=== PATIENT | female | born 1960 | race African-American/Black ===

== ENCOUNTER 2024-07-04 22:25 | Observation (INO) | payer OTHER ==
[2024-07-04] MEDS ORDERED: ACETAMINOPHEN INJECTION 100 ML ONE (22:53)
[2024-07-04 23:22] LABS: VENOUS BASE EXCESS 4.6 mmol/L (-2-2); VENOUS O2 SATURATION 93.1 % (70-80); VENOUS PCO2 33.3 mmHg (38-52); VENOUS PH 7.528 (7.310-7.410)
[2024-07-04] MEDS: ACETAMINOPHEN 1000 MG/100 ML BAG IVPB ONE (23:23)
[2024-07-04 23:35] LABS: ABSOLUTE IMMATURE GRANULOCYTES 0.03 x10^3/uL (0.0-0.031); BASOPHILS # 0.02 x10^3/uL (0.01-0.08); EOSINOPHIL % 0.6 % (0.7-5.8); EOSINOPHILS # 0.06 x10^3/uL (0.04-0.36); HEMATOCRIT 35.4 % (34.1-44.9); HEMOGLOBIN 11.5 g/dL (11.2-15.7); MCHC 32.5 g/dl (32.2-35.5); MEAN PLT VOLUME 11.6 fl (9.4-12.3); MONOCYTE # 0.63 x10^3/uL (0.24-0.86); MONOCYTE % 6.3 % (4.7-12.5); PLATELET COUNT 297 x10^3/uL (182-369); RDW 15.8 % (12.4-16.4)
[2024-07-04 23:47] LABS: INR 1.06 (0.83-1.09); PROTHROMBIN TIME (PATIENT) 11.5 SEC (9.7-13.0)
[2024-07-04 23:49] LABS: ACTIVATED PTT 27.1 SECONDS (25.2-36.5)
[2024-07-04 23:50] LABS: LACTIC ACID 2.1 mmol/L (0.4-2.0)
[2024-07-04 23:59] LABS: POTASSIUM 3.7 mmol/L (3.5-5.1)
[2024-07-05 00:01] LABS: CALCIUM 9.1 mg/dL (8.5-10.1)
[2024-07-05 00:02] LABS: ALBUMIN 3.4 g/dl (3.4-5.0); BLOOD UREA NITROGEN 10.1 mg/dL (7-18)
[2024-07-05 00:05] LABS: CREATININE 0.8 mg/dL (0.55-1.3)
[2024-07-05 00:07] LABS: BILIRUBIN,TOTAL 0.3 mg/dL (0.2-1); TOT PROT 7.4 g/dl (6.4-8.2)
[2024-07-05] MEDS ORDERED: ALBUTEROL SO4 2.5/IPRATROPIUM 0.5 INH SOL 3 ML VIAL.NEB. NEB PRN (01:27)
[2024-07-05] MEDS: SODIUM CHLORIDE 1,000 ML IV STA (01:40)
[2024-07-05] MEDS ORDERED: methylPREDNISolone NA SUCC 40 MG/1 ML VIAL ONE (01:42)
[2024-07-05] MEDS: methylPREDNISolone NA SUCC 125 MG/2 ML VIAL IVPUSH ONE (01:54)
[2024-07-05] MEDS: SODIUM CHLORIDE 0.9% 500 ML INFUS.BAG IV ONE (01:54)
[2024-07-05] MEDS: ALBUTEROL SO4 2.5/IPRATROPIUM 0.5 INH SOL 3 ML VIAL.NEB. NEB SCH (01:54)
[2024-07-05] MEDS: OSELTAMIVIR PHOSPHATE 75 MG CAPSULE PO ONE (01:54)
[2024-07-05] MEDS ORDERED: ACETAMINOPHEN 325 MG TABLET (FP) PO PRN (02:10)
[2024-07-05] MEDS: ZOLPIDEM TARTRATE 5 MG TABLET PO PRN (03:15)
[2024-07-05 03:51] VITALS: RESP 20; BMI 35.3
[2024-07-05] MEDS: SODIUM CHLORIDE 0.9% 1000 ML INFUS.BAG IV ONE (04:00)
[2024-07-05 05:53] LABS: URINE APPEARANCE CLEAR; URINE BILIRUBIN NEGATIVE (NEGATIVE); URINE COLOR YELLOW; URINE GLUCOSE (UA) 1+ (NEGATIVE); URINE KETONE NEGATIVE (NEGATIVE); URINE LEUK ESTERASE NEGATIVE (NEGATIVE); URINE NITRITE NEGATIVE (NEGATIVE); URINE PROTEIN NEGATIVE (NEGATIVE); URINE UROBILINOGEN 0.2 mg/dL (0.2-1.0)
[2024-07-05] MEDS: INSULIN ASPART SLIDING SCALE (NOVOLOG) 1 VIAL SQ SCH (06:30)
[2024-07-05] MEDS ORDERED: methylPREDNISolone NA SUCC 40 MG/1 ML VIAL IVPUSH SCH (07:00)
[2024-07-05 08:40] LABS: HEMATOCRIT 35.2 % (34.1-44.9); HEMOGLOBIN 11.1 g/dL (11.2-15.7); MCHC 31.5 g/dl (32.2-35.5); MEAN CELL VOLUME 77.9 fl (79.4-94.8); MEAN PLT VOLUME 11.6 fl (9.4-12.3); PLATELET COUNT 281 x10^3/uL (182-369); RDW 15.8 % (12.4-16.4)
[2024-07-05 09:00] LABS: POTASSIUM 3.3 mmol/L (3.5-5.1)
[2024-07-05 09:04] LABS: CALCIUM 8.1 mg/dL (8.5-10.1)
[2024-07-05 09:08] LABS: CREATININE 0.7 mg/dL (0.55-1.3)
[2024-07-05 09:09] LABS: BILIRUBIN,TOTAL 0.6 mg/dL (0.2-1); TOT PROT 6.7 g/dl (6.4-8.2)
[2024-07-05] MEDS: ASPIRIN COATED 81 MG TABLET.EC PO SCH (09:13)
[2024-07-05] MEDS: VALSARTAN 160 MG TABLET PO SCH (09:14)
[2024-07-05] MEDS: HYDROCHLOROTHIAZIDE 25 MG TABLET (FP) PO SCH (09:14)
[2024-07-05] MEDS: OSELTAMIVIR PHOSPHATE 75 MG CAPSULE PO SCH ×2 (09:14→11:37)
[2024-07-05] MEDS: ARIPiprazole 5 MG TABLET PO SCH (10:42)
[2024-07-05] MEDS: ENOXAPARIN NA (PORCINE) 40 MG/0.4 ML DISP.SYRIN SQ SCH (10:42)
[2024-07-05 12:41] VITALS: BP 153/51; PULSE 110; TEMP 97.9
[2024-07-05] MEDS: PANTOPRAZOLE 40 MG TABLET PO SCH (13:50)
[2024-07-05] MEDS: POTASSIUM CHLORIDE TABS 20 MEQ TABLET.ER (FP) PO ONE (13:50)
[2024-07-05] MEDS: IBUPROFEN 400 MG TABLET (FP) PO ONE (13:51)
[2024-07-05] MEDS: FAMOTIDINE 20 MG/50 ML IVPB 20 MG/50 ML MG IVPB ONE (13:51)
[2024-07-05] MEDS ORDERED: ATORVASTATIN CA 40 MG TABLET (FP) PO SCH (22:00)
== END 2024-07-05 17:05 | disposition home or self-care (01) ==
LOC: JER 22:25 → JERBED 07-05 00:35 → J6S 07-05 02:47
PROVIDERS: ADMIT Internal Medicine; ATTEND Internal Medicine
PROC: 3E033NZ Introduction of Analgesics, Hypnotics, Sedatives into Peripheral Vein, Percutaneous Approach (ICD-10-PCS; principal; 2024-07-05)
PROC: 3E023GC Introduction of Other Therapeutic Substance into Muscle, Percutaneous Approach (ICD-10-PCS; 2024-07-05)
PROC: 3E033GC Introduction of Other Therapeutic Substance into Peripheral Vein, Percutaneous Approach (ICD-10-PCS; 2024-07-05)
PROC: 3E033GC Introduction of Other Therapeutic Substance into Peripheral Vein, Percutaneous Approach (ICD-10-PCS; 2024-07-05)
PROC: 3E0337Z Introduction of Electrolytic and Water Balance Substance into Peripheral Vein, Percutaneous Approach (ICD-10-PCS; 2024-07-05)
DX: J10.1 Influenza due to other identified influenza virus with other respiratory manifestations (principal); A41.9 Sepsis, unspecified organism; J45.909 Unspecified asthma, uncomplicated; I10 Essential (primary) hypertension; E11.9 Type 2 diabetes mellitus without complications; E78.5 Hyperlipidemia, unspecified; E87.3 Alkalosis
CPT/HCPCS: 0241U-QW; 36415; 71045-TC-FY; 71250-TC; 80053; 81003; 82803; 82962; 83036; 83605; 84484; 85025; 85027; 85610; 85730; 86850; 86900; 86901; 87040; 87086; 93005; 93010; 94640; 94761; 96361; 96365; 96372; 96375; 99285-25; G0378; J0131